=== PATIENT | female | born 1980 | race Caucasian/White ===

== ENCOUNTER 2018-04-12 18:09 | Emergency (ER) | payer OTHER ==
[~2018-04-12] VITALS: Ht 167.6 cm; Wt 152.9 kg
--- NOTE | 2018-04-12 18:15 | ED.ADGEN ---
Past History Past Medical History: Other Adult General Chief Complaint Chief Complaint ".. Just not feeling right... fast heart rate... I .. 17 weeks... been seeing Dr. Penaloza... I have some diabetes... This is my forth ...." HPI HPI Patient is a 38 year old fe,male who presents with above hx and complaints tachycardia, gravid and diabetes. Pt. denies any trauma, ill contacts or travel. Pt. has had some nausea. this is pt 4 t h . No hx of vaginal discharge. No hx of STD's. Pt. reports some leg edema. Pt. follows with Dr. Penaloza. Review of Systems Review of Systems Constitutional: Denies fever or chills [] Eyes: Denies change in visual acuity, redness, or eye pain [] HENT: Denies nasal congestion or sore throat [] Respiratory: Denies cough or shortness of breath [] Cardiovascular: No additional information not addressed in HPI [] GI: Denies abdominal pain, vomiting, bloody stools or diarrhea []Complaints of nausea. : Denies dysuria or hematuria [] Musculoskeletal: Denies back pain or joint pain []Complaints bilateral leg edema. Integument: Denies rash or skin lesions [] Neurologic: Denies headache, focal weakness or sensory changes [] Endocrine: Denies polyuria or polydipsia [] All other systems were reviewed and found to be within normal limits, except as documented in this note. Family History Family History Non-contributory Current Medications Current Medications Current Medications Medications (Trade) Dose Ordered Sig/Jina Start Time Stop Time Status Last Admin Dose Admin Aspirin (Children'S Aspirin) 81 mg 1X ONCE 04/12/18 18:45 04/12/18 18:46 DC 04/12/18 18:45 81 MG Ceftriaxone Sodium 1 gm/ Sodium Chloride 50 ml @ 100 mls/hr 1X ONCE 04/12/18 22:30 04/12/18 22:59 UNV Ceftriaxone Sodium (Rocephin) 1 gm ONCE ONCE 04/12/18 22:30 04/12/18 22:31 DC 04/12/18 22:46 1 GM Lactated Ringer's 1,000 ml @ 1,000 mls/hr Q1H 04/12/18 18:31 04/12/18 19:30 DC 04/12/18 19:05 1,000 MLS/HR Magnesium Sulfate 50 ml @ 25 mls/hr 1X ONCE 04/12/18 18:45 04/12/18 20:44 DC 04/12/18 19:06 25 MLS/HR Allergies Allergies Allergies Coded Allergies Type Severity Reaction Last Updated Verified No Known Allergies Allergy Unknown 04/12/18 Yes Physical Exam Physical Exam Constitutional: mild distress, non-toxic appearance. [] HENT: Normocephalic, atraumatic, bilateral external ears normal, oropharynx dry , no oral exudates, nose normal. [] Eyes: PERRLA, EOMI, conjunctiva normal, no discharge. [] Neck: Normal range of motion, no tenderness, supple, no stridor. [] Cardiovascular:Heart rate regular rhythm, no murmur [] Lungs & Thorax: Bilateral breath sounds clear to auscultation [] Abdomen: Bowel sounds normal, soft, no tenderness, gravid, no pulsatile masses. [] Obese. Skin: Warm, dry, no erythema, no rash. [] Back: No tenderness, no CVA tenderness. [] Extremities: No tenderness, no cyanosis, no clubbing, ROM intact, bilateral ankle edema. [] Neurologic: Alert and oriented X 3, normal motor function, normal sensory function, no focal deficits noted. [] Psychologic: Affect normal, judgement normal, mood normal. [] Current Patient Data Vital Signs Vital Signs Date Time Temp Pulse Resp B/P (MAP) Pulse Ox O2 Delivery O2 Flow Rate FiO2 04/12/18 22:45 70 18 122/72 (89) 98 Room Air 04/12/18 18:09 98.5 Lab Results Laboratory Tests Test 04/12/18 18:35 04/12/18 18:45 04/12/18 21:18 White Blood Count 7.4 x10^3/uL (4.0-11.0) Red Blood Count 4.89 x10^6/uL (3.50-5.40) Hemoglobin 13.6 g/dL (12.0-15.5) Hematocrit 41.0 % (36.0-47.0) Mean Corpuscular Volume 84 fL (79-100) Mean Corpuscular Hemoglobin 28 pg (25-35) Mean Corpuscular Hemoglobin Concent 33 g/dL (31-37) Red Cell Distribution Width 14.9 % (11.5-14.5) H Platelet Count 204 x10^3/uL (140-400) Neutrophils (%) (Auto) 68 % (31-73) Lymphocytes (%) (Auto) 22 % (24-48) L Monocytes (%) (Auto) 8 % (0-9) Eosinophils (%) (Auto) 1 % (0-3) Basophils (%) (Auto) 0 % (0-3) Neutrophils # (Auto) 5.0 x10^3uL (1.8-7.7) Lymphocytes # (Auto) 1.6 x10^3/uL (1.0-4.8) Monocytes # (Auto) 0.6 x10^3/uL (0.0-1.1) Eosinophils # (Auto) 0.1 x10^3/uL (0.0-0.7) Basophils # (Auto) 0.0 x10^3/uL (0.0-0.2) Prothrombin Time < 9.3 SEC (9.4-11.4) L Prothrombin Time INR 0.9 (0.9-1.1) PTT 25 SEC (23-33) D-Dimer (Melani) 0.98 mg/L (0.00-0.50) H Maternal Serum HCG Beta Subunit 6825 mIU/mL (0-6) H Sodium Level 138 mmol/L (136-145) Potassium Level 3.5 mmol/L (3.5-5.1) Chloride Level 102 mmol/L (98-107) Carbon Dioxide Level 25 mmol/L (21-32) Anion Gap 11 (6-14) Blood Urea Nitrogen 9 mg/dL (7-20) Creatinine 0.7 mg/dL (0.6-1.0) Estimated GFR (Cockcroft-Gault) 93.6 Glucose Level 100 mg/dL (70-99) H Calcium Level 8.8 mg/dL (8.5-10.1) Magnesium Level 1.7 mg/dL (1.8-2.4) L Total Bilirubin 0.2 mg/dL (0.2-1.0) Direct Bilirubin 0.1 mg/dL (0.0-0.2) Aspartate Amino Transferase (AST) 15 U/L (15-37) Alanine Aminotransferase (ALT) 28 U/L (14-59) Alkaline Phosphatase 71 U/L (46-116) GF-Fau-S-Type Natriuretic Peptide 65 pg/mL (0-124) Total Protein 7.3 g/dL (6.4-8.2) Albumin 2.8 g/dL (3.4-5.0) L Lipase 162 U/L (73-393) Troponin I Quantitative < 0.017 ng/mL (0-0.055) Urine Collection Type Unknown Urine Color Yellow Urine Clarity Hazy Urine pH 6.0 Urine Specific [place] >=1.030 Urine Protein Neg (NEG-TRACE) Urine Glucose (UA) Neg mg/dL (NEG) Urine Ketones (Stick) Trace mg/dL (NEG) Urine Blood Neg (NEG) Urine Nitrite Neg (NEG) Urine Bilirubin Neg (NEG) Urine Urobilinogen Dipstick 0.2 mg/dL (0.2 mg/dL) Urine Leukocyte Esterase Trace (NEG) Urine RBC 3-5 /HPF (0-2) Urine WBC 5-10 /HPF (0-4) Urine Squamous Epithelial Cells Many /LPF Urine Bacteria Mod /HPF (0-FEW) Urine Opiates Screen Neg (NEG) Urine Methadone Screen Neg (NEG) Urine Barbiturates Neg (NEG) Urine Phencyclidine Screen Neg (NEG) Urine Amphetamine/Methamphetamine Neg (NEG) Urine Benzodiazepines Screen Neg (NEG) Urine Cocaine Screen Neg (NEG) Urine Cannabinoids Screen Neg (NEG) Urine Ethyl Alcohol Neg (NEG) EKG EKG My interpretation of EKG sows sinu 83, Anterolateral changes, but no findings of acute STEMI with contralateral changes. [] Radiology/Procedures Radiology/Procedures No DVT by US. IUP 16w5 days[] Course & Med Decision Making Course & Med Decision Making Pertinent Labs and Imaging studies reviewed. (See chart for details). Pt. to follow up with primary.. Push fluids. Vit. C drinks. Take Keflex 500 three times a day . Review pending labs with primary and obgyn. Return if any concerns. [] Final Impression Final Impression 1. Dysrhythmia[]- Tachycardia 2. Gravidx 4 3. IUP - 16w 5 days Active- FHR 155 4. BHCG 6825 5. Hypomagnesium 1.7 6. UTI Dragon Disclaimer Dragon Disclaimer This electronic medical record was generated, in whole or in part, using a voice recognition dictation system. ROMERO CHU MD Apr 12, 2018 18:14
[2018-04-12] MEDS ORDERED: IV RINGERS SOLUTION,LACTATED 1,000 ML IV SCH (18:31)
[2018-04-12] MEDS: ASPIRIN 81 MG TAB.CHEW PO ONE ×2 (18:45→19:06)
[2018-04-12] MEDS ORDERED: MAGNESIUM SULFATE 2GM 50 ML IV ONE (18:45)
[2018-04-12 18:57] LABS: BASO % 0 % (0-3); EOS # 0.1 x10^3/uL (0.0-0.7); EOS % 1 % (0-3); HEMOGLOBIN 13.6 g/dL (12.0-15.5); LYMPH # 1.6 x10^3/uL (1.0-4.8); LYMPH % 22 % (24-48); MEAN CORPUSCULAR HEMOGLOBIN 28 pg (25-35); MEAN CORPUSCULAR HGB CONC 33 g/dL (31-37); MEAN CORPUSCULAR VOLUME 84 fL (79-100); MONO # 0.6 x10^3/uL (0.0-1.1); MONO % 8 % (0-9); NEUT % 68 % (31-73); PLATELET COUNT 204 x10^3/uL (140-400); RED BLOOD COUNT 4.89 x10^6/uL (3.50-5.40); RED CELL DISTRIBUTION WIDTH 14.9 % (11.5-14.5); WHITE BLOOD COUNT 7.4 x10^3/uL (4.0-11.0)
[2018-04-12 19:11] LABS: ALBUMIN 2.8 g/dL (3.4-5.0); CALCIUM 8.8 mg/dL (8.5-10.1); CREATININE 0.7 mg/dL (0.6-1.0); DIRECT BILIRUBIN 0.1 mg/dL (0.0-0.2); GFR 93.6; MAGNESIUM 1.7 mg/dL (1.8-2.4); POTASSIUM 3.5 mmol/L (3.5-5.1); TOTAL BILIRUBIN 0.2 mg/dL (0.2-1.0); TOTAL PROTEIN 7.3 g/dL (6.4-8.2)
[2018-04-12 21:40] LABS: AMPHETAMINE/METHAMPHETAMINE NEG (NEG); BARBITURATES NEG (NEG); BENZODIAZEPINES NEG (NEG); CANNABINOIDS NEG (NEG); COCAINE NEG (NEG); METHADONE NEG (NEG); OPIATES NEG (NEG); PHENCYCLIDINE NEG (NEG)
--- NOTE | 2018-04-12 21:56 | RAD ---
Ultrasound obstetrics limited 04/12/2018 Clinical indication: Atrial fibrillation dysrhythmia COMPARISON: Ultrasound 11/19/2012 Findings: There is a single intrauterine gestation in cephalic presentation. The placenta is posterior in location without evidence of placental previa. Amniotic fluid is subjectively unremarkable. Biometrical data is as follows: BPD = 3.5 cm, with a corresponding gestational age of 16 weeks 5 days. HC = 13.5 cm, with a corresponding gestational age of 17 weeks 0 days. AC = 10.8 cm, with a corresponding gestational age of 16 weeks 5 days. FL = 2.1 cm, with a corresponding gestational age of 16 weeks 3 days. Ratio of head circumference to abdominal circumference is 1.25. Overall, the estimated sonographic gestational age is 16 weeks 5 days for an estimated date of delivery of September 22, 2018. Estimated weight is 162 g. anatomy survey is not performed. heart rate is identified estimated at 155 bpm. IMPRESSION: Single living intrauterine with estimated gestational age of 16 weeks 5 days. Electronically signed by: Brigido Wofle MD (04/12/2018 9:52 PM) [facility]
--- NOTE | 2018-04-12 21:58 | RAD ---
Bilateral Lower extremity venous Doppler. 04/12/2018 HISTORY: Atrial fibrillation and dysrhythmia COMPARISON: None. FINDINGS: Grayscale, Color and Doppler analysis of the Bilateral Lower extremity deep venous system was performed with serial graded compression and augmentation. The bilateral common femoral, femoral, and popliteal veins are widely patent with normal color Doppler imaging. Limited images of the bilateral calf veins are unremarkable. IMPRESSION: No evidence of DVT in the bilateral lower extremities. Electronically signed by: Brigido Wolfe MD (04/12/2018 9:55 PM) [facility]
[2018-04-12 22:14] LABS: BILIRUBIN,URINE NEG (NEG); CLARITY,URINE HAZY; COLOR,URINE YELLOW; GLUCOSE,URINE NEG (NEG)
[2018-04-12 22:15] LABS: BACTERIA,URINE MOD /HPF (0-FEW); NITRITE,URINE NEG (NEG); SQUAMOUS EPITHELIAL CELL,UR MANY /LPF; UROBILINOGEN,URINE 0.2 mg/dL (0.2 mg/dL)
[2018-04-12] MEDS ORDERED: cefTRIAXone IV Push 1 GM VIAL. IVP ONE (22:30)
[2018-04-12] MEDS ORDERED: CEPH-264 PO (22:34)
[2018-04-12 22:45] VITALS: BP 122/72
--- NOTE | 2018-04-13 02:40 | EKG ---
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
== END 2018-04-12 23:02 | disposition home or self-care (01) ==
LOC: ER 18:09
DX: O26.892 Other specified pregnancy related conditions, second trimester (principal); O23.42 Unspecified infection of urinary tract in pregnancy, second trimester; R00.0 Tachycardia, unspecified; O12.02 Gestational edema, second trimester; E83.42 Hypomagnesemia; Z3A.16 16 weeks gestation of pregnancy
CPT/HCPCS: 36415; 76815; 80048; 80076; 80307; 81001; 83690; 83735; 83880; 84443; 84484; 84702; 85025; 85379; 85610; 85730; 86705; 86709; 86803; 86850; 86900; 86901; 87086; 87340; 93005; 93970; 96365; 96366; 96375; 99284; J0696; J3475; J7120

== ENCOUNTER 2019-02-19 18:01 | Emergency (ER) | payer OTHER ==
[~2019-02-19] VITALS: Ht 165.1 cm; Wt 137.9 kg
[~2019-02-19 18:01] MED LIST: CEPH-264 PO
--- NOTE | 2019-02-19 18:05 | ED.ADGEN ---
Past History Past Medical History: Other Past Surgical History: Cholecystectomy, Alcohol Use: None Drug Use: None Adult General Chief Complaint Chief Complaint ".. I just seen my doctor today at 10:00.. but she did not give me anything for my Rt. ear.. " HPI HPI Patient is a 38 year old female who presents with above hx and complaints of ear pain after cleaning ears Q tip. Patient does have some excoriation of the ear canal on right. And mild redness of the TM. Patient also complaining of lower mandible pain, but recently had a root canal on molar 30. Patient also has com plaints of cyst that are scheduled for removal on her scalp. Patient states the pain 8 years radiating into her right mandible face and upper neck. This is making her trapezius also tender on right. Patient denies any trauma. Other than the cleaning with Q-tips to right ear and recent root canal. Review of Systems Review of Systems Constitutional: Denies fever or chills [] Eyes: Denies change in visual acuity, redness, or eye pain [] HENT: Complaints of right ear pain Respiratory: Denies cough or shortness of breath [] Cardiovascular: No additional information not addressed in HPI [] GI: Denies abdominal pain, nausea, vomiting, bloody stools or diarrhea [] : Denies dysuria or hematuria [] Musculoskeletal: Denies back pain or joint pain [] Integument: Denies rash or skin lesions [] Neurologic: Denies headache, focal weakness or sensory changes [] Endocrine: Denies polyuria or polydipsia [] All other systems were reviewed and found to be within normal limits, except as documented in this note. Family History Family History Noncontributory Current Medications Current Medications Current Medications Medications (Trade) Dose Ordered Sig/Jina Start Time Stop Time Status Last Admin Dose Admin Neomycin/ Polymyxin/ Hydrocortisone (Cortisporin Otic) 2 drop 1X ONCE 02/19/19 18:30 02/19/19 18:31 DC 02/19/19 18:30 2 DROP Allergies Allergies Allergies Coded Allergies Type Severity Reaction Last Updated Verified No Known Allergies Allergy Unknown 04/12/18 Yes Physical Exam Physical Exam Constitutional: Mild to moderate distress, non-toxic appearance. [] HENT: Normocephalic, atraumatic, excoriated external ears and now also in right TM is slightly injected , oropharynx moist, no oral exudates, nose normal. []Recent dental work right molar #30. Some small cyst on scalp Eyes: PERRLA, EOMI, conjunctiva normal, no discharge. [] Neck: Normal range of motion, no tenderness, supple, no stridor. [] Cardiovascular:Heart rate regular rhythm, no murmur [] Lungs & Thorax: Bilateral breath sounds at apexes auscultation [] Abdomen: Bowel sounds normal, soft, no tenderness, no masses, no pulsatile masses. Obese Skin: Warm, dry, no erythema, no rash. [] Back: No tenderness, no CVA tenderness. [] Extremities: No tenderness, no cyanosis, no clubbing, ROM intact, no edema. [] Neurologic: Alert and oriented X 3, normal motor function, normal sensory function, no focal deficits noted. [] Psychologic: Affect anxious, judgement normal, mood normal. [] Current Patient Data Vital Signs Vital Signs Date Time Temp Pulse Resp B/P (MAP) Pulse Ox O2 Delivery O2 Flow Rate FiO2 02/19/19 19:02 85 18 96 Room Air Lab Results Laboratory Tests Test 02/19/19 18:55 02/19/19 19:02 Urine Collection Type Unknown Urine Color Yellow Urine Clarity Hazy Urine pH 6.0 Urine Specific [place] 1.025 Urine Protein Neg (NEG-TRACE) Urine Glucose (UA) Neg mg/dL (NEG) Urine Ketones (Stick) Trace mg/dL (NEG) Urine Blood Neg (NEG) Urine Nitrite Neg (NEG) Urine Bilirubin Neg (NEG) Urine Urobilinogen Dipstick 1 mg/dL (0.2 mg/dL) Urine Leukocyte Esterase Neg (NEG) Urine RBC Occ /HPF (0-2) Urine WBC 1-4 /HPF (0-4) Urine Squamous Epithelial Cells Few /LPF Urine Bacteria Few /HPF (0-FEW) Urine Opiates Screen Neg (NEG) Urine Methadone Screen Neg (NEG) Urine Barbiturates Neg (NEG) Urine Phencyclidine Screen Neg (NEG) Urine Amphetamine/Methamphetamine Neg (NEG) Urine Benzodiazepines Screen Neg (NEG) Urine Cocaine Screen Neg (NEG) Urine Cannabinoids Screen Neg (NEG) Urine Ethyl Alcohol Neg (NEG) POC Urine HCG, Qualitative hcg negative (Negative) EKG EKG [] Radiology/Procedures Radiology/Procedures [] Course & Med Decision Making Course & Med Decision Making Pertinent Labs and Imaging studies reviewed. (See chart for details). A shunt stop cleaning ears with Q-tips. Use Cortisporin drops to right ear 4 times a day. For marked pain may take Vicoprofen up 4 times a day. Follow-up primary care. Consider referral to ENT or audiology if having trouble with continued pain in right ear. Keep dental follow-up for partial repair of her molar root canal. [] Final Impression Final Impression 1. Right ear pain-felt to be due to excoriation with Q-tip 2. Right mandible pain= Dental repair molar 30[] Dragon Disclaimer Dragon Disclaimer This electronic medical record was generated, in whole or in part, using a voice recognition dictation system. Dragon Disclaimer This chart was dictated in whole or in part using Voice Recognition software in a busy, high-work load, and often noisy Emergency Department environment. It may contain unintended and wholly unrecognized errors or omissions. ROMERO CHU MD Feb 19, 2019 18:05
[2019-02-19] MEDS ORDERED: HYDR-1179 PO (18:25)
[2019-02-19] MEDS ORDERED: NEOMYCIN/POLYMYXIN/HC OTIC SUSPENSION 10ML BOTTLE. AD ONE (18:30)
[2019-02-19 19:02] VITALS: BP 129/96
[2019-02-19 19:17] LABS: AMPHETAMINE/METHAMPHETAMINE NEG (NEG); BARBITURATES NEG (NEG); BENZODIAZEPINES NEG (NEG); CANNABINOIDS NEG (NEG); COCAINE NEG (NEG); METHADONE NEG (NEG); OPIATES NEG (NEG); PHENCYCLIDINE NEG (NEG)
[2019-02-19 19:21] LABS: BILIRUBIN,URINE NEG (NEG); CLARITY,URINE HAZY; COLOR,URINE YELLOW; GLUCOSE,URINE NEG (NEG)
[2019-02-19 19:22] LABS: NITRITE,URINE NEG (NEG); RBC,URINE OCC /HPF (0-2); UROBILINOGEN,URINE 1 mg/dL (0.2 mg/dL)
[2019-02-19 19:23] LABS: BACTERIA,URINE FEW /HPF (0-FEW); SQUAMOUS EPITHELIAL CELL,UR FEW /LPF
== END 2019-02-19 19:35 | disposition home or self-care (01) ==
LOC: ER 18:01
DX: S00.412A Abrasion of left ear, initial encounter (principal); S00.411A Abrasion of right ear, initial encounter; R68.84 Jaw pain; Z98.818 Other dental procedure status; X58.XXXA Exposure to other specified factors, initial encounter; Y93.89 Activity, other specified; Y92.89 Other specified places as the place of occurrence of the external cause; Y99.8 Other external cause status
CPT/HCPCS: 36415; 80307; 81001; 81025; 99284

== ENCOUNTER → 2020-08-07 | Outpatient (CLI) | payer OTHER ==
[~2020-08-07] MED LIST changes: +HYDR-1179 PO
--- NOTE | 2020-08-07 14:48 | RAD ---
EXAM: Pelvic sonogram. HISTORY: Pain. TECHNIQUE: Transabdominal and transvaginal sonographic imaging of the pelvis was performed. COMPARISON: None. FINDINGS: The uterus measures 15.5 x 7.8 x 4.8 cm. The endometrial stripe is thickened, measuring 2.2 cm. There are small suspected cysts within the endometrium. The right ovary is obscured. The left ov mary kate is normal in size. There is a 1.4 cm dominant left ovarian follicle. Evaluation of left ovarian b lood flow is limited due to location and body habitus. There are multiple nabothian cysts within the cervix. There is no pelvic free fluid. IMPRESSION: 1. Prominent uterus size. No uterine mass is seen. 2. Thickened endometrium containing suspected small cysts. Sonographic follow-up at a different phase of the menstrual cycle or tissue sampling can be performed if clinically indicated. 3. Obscured right ovary. Suboptimal evaluation of left ovarian blood flow due to location and body edwards bitus. 4. Nabothian cysts. Electronically signed by: Michelle Jama MD (08/07/2020 2:46 PM) [facility]
== END ==
LOC: US 10:44
PROVIDERS: ATTEND Obstetrics & Gynecology
DX: N88.8 Other specified noninflammatory disorders of cervix uteri (principal); R93.89 Abnormal findings on diagnostic imaging of other specified body structures; R14.0 Abdominal distension (gaseous); R10.31 Right lower quadrant pain
CPT/HCPCS: 76830; 76856

== ENCOUNTER → 2020-08-10 | Outpatient (CLI) | payer OTHER ==
[2020-08-10 15:41] LABS: BASO % 1 % (0-3); EOS # 0.2 x10^3/uL (0.0-0.7); EOS % 4 % (0-3); HEMATOCRIT 40.9 % (36.0-47.0); HEMOGLOBIN 13.4 g/dL (12.0-15.5); LYMPH # 1.8 x10^3/uL (1.0-4.8); LYMPH % 30 % (24-48); MEAN CORPUSCULAR HEMOGLOBIN 28 pg (25-35); MEAN CORPUSCULAR HGB CONC 33 g/dL (31-37); MEAN CORPUSCULAR VOLUME 84 fL (79-100); MONO # 0.4 x10^3/uL (0.0-1.1); MONO % 7 % (0-9); NEUT # 3.6 x10^3uL (1.8-7.7); NEUT % 59 % (31-73); PLATELET COUNT 221 x10^3/uL (140-400); RED BLOOD COUNT 4.89 x10^6/uL (3.50-5.40); RED CELL DISTRIBUTION WIDTH 15.3 % (11.5-14.5); WHITE BLOOD COUNT 6.1 x10^3/uL (4.0-11.0)
[2020-08-10 15:52] LABS: ALBUMIN 3.3 g/dL (3.4-5.0); ALBUMIN/GLOBULIN RATIO 0.8 (1.0-1.7); CALCIUM 8.6 mg/dL (8.5-10.1); CREATININE 0.9 mg/dL (0.6-1.0); GFR 69.3; POTASSIUM 4.2 mmol/L (3.5-5.1); TOTAL BILIRUBIN 0.3 mg/dL (0.2-1.0); TOTAL PROTEIN 7.6 g/dL (6.4-8.2)
[2020-08-11 05:16] LABS: HEMOGLOBIN A1C 5.8 % (4.8-5.6)
[2020-08-11 19:27] LABS: THYROID STIM HORMONE (TSH) 1.597 uIU/mL (0.358-3.740)
== END ==
LOC: LAB 13:37
PROVIDERS: ATTEND Obstetrics & Gynecology
DX: R93.89 Abnormal findings on diagnostic imaging of other specified body structures (principal)
CPT/HCPCS: 36415; 80053; 80061; 83036; 84443; 85025

== ENCOUNTER 2021-05-08 12:37 | Emergency (ER) | payer OTHER ==
[~2021-05-08] VITALS: Ht 165.1 cm; Wt 154.5 kg
--- NOTE | 2021-05-08 13:53 | PHYS DOC ---
Past History Past Medical History: Migraines, Other Additional Past Medical Histor: GESTATIONAL DM (BARON MARAVILLA APRN) Past Surgical History: Cholecystectomy, , Other Additional Past Surgical Histo: WISDOM TEETH (BARON MARAVILLA APRN) Alcohol Use: None Drug Use: None (BARON MARAVILLA APRN) General Adult EDM: Chief Complaint: CHEST PAIN HPI: HPI: Patient is a 41-year-old female who presents to the emergency department for midsternal chest pain that started this morning around 8 AM. She describes it as an aching and tightness. Does not radiate. She is unable to rate the pain currently. No aggravating factors. It is alleviated by closing her eyes. She reports a chronic cough. She also reports nausea and anxiety. She denies any vomiting, shortness of breath, fevers or medical history. She states that she took [id number] migraine medication prior to arrival. (BARON MARAVILLA APRN) Review of Systems: Review of Systems: Constitutional: negative unless reported in HPI Eyes: negative unless reported in HPI HENT: negative unless reported in HPI Respiratory: negative unless reported in HPI Cardiovascular: negative unless reported in HPI GI: negative unless reported in HPI : negative unless reported in HPI Musculoskeletal: negative unless reported in HPI Integument: negative unless reported in HPI Neurologic: negative unless reported in HPI Endocrine: negative unless reported in HPI Lymphatic: negative unless reported in HPI Psychiatric: negative unless reported in HPI (BARON MARAVILLA APRN) Allergies: Allergies: Allergies Coded Allergies Type Severity Reaction Last Updated Verified No Known Allergies Allergy Unknown 04/12/18 Yes (BARON MARAVILLA APRN) Physical Exam: PE: Constitutional: Well developed, well nourished, no acute distress, non-toxic appearance. [] HENT: Normocephalic, atraumatic, bilateral external ears normal, oropharynx moist, no oral exudates, nose normal. [] Eyes: PERRL, EOMI, conjunctiva normal, no discharge. [] Neck: Normal range of motion, no stridor Cardiovascular:Heart rate regular rhythm, no murmur, chest pain reproducible with palpation [] Lungs & Thorax: Bilateral breath sounds clear to auscultation [] Abdomen: Bowel sounds normal, soft, no tenderness, obese, no masses, no pulsatile masses. [] Skin: Warm, dry, no erythema, no rash. [] Back: Normal range of motion Extremities: No tenderness, no cyanosis, no clubbing, ROM intact, no edema. [] Neurologic: Alert and oriented X 3, normal motor function, normal sensory function, no focal deficits noted. [] Psychologic: Affect normal, judgement normal, mood normal. [] (BARON MARAVILLA APRN) Current Patient Data: Labs: Laboratory Tests Test 05/08/21 13:41 05/08/21 14:05 05/08/21 14:10 White Blood Count 4.2 x10^3/uL Red Blood Count 5.29 x10^6/uL Hemoglobin 12.9 g/dL Hematocrit 40.5 % Mean Corpuscular Volume 77 fL Mean Corpuscular Hemoglobin 24 pg Mean Corpuscular Hemoglobin Concent 32 g/dL Red Cell Distribution Width 17.1 % Platelet Count 204 x10^3/uL Neutrophils (%) (Auto) 39 % Lymphocytes (%) (Auto) 39 % Monocytes (%) (Auto) 21 % Eosinophils (%) (Auto) 0 % Basophils (%) (Auto) 1 % Neutrophils # (Auto) 1.6 x10^3uL Lymphocytes # (Auto) 1.6 x10^3/uL Monocytes # (Auto) 0.9 x10^3/uL Eosinophils # (Auto) 0.0 x10^3/uL Basophils # (Auto) 0.0 x10^3/uL Sodium Level 136 mmol/L Potassium Level 4.6 mmol/L Chloride Level 100 mmol/L Carbon Dioxide Level 24 mmol/L Anion Gap 12 Blood Urea Nitrogen 11 mg/dL Creatinine 0.9 mg/dL Estimated GFR (Cockcroft-Gault) 69.0 BUN/Creatinine Ratio 12 Glucose Level 91 mg/dL Calcium Level 8.4 mg/dL Total Bilirubin 0.2 mg/dL Aspartate Amino Transf (AST/SGOT) 54 U/L Alanine Aminotransferase (ALT/SGPT) 52 U/L Alkaline Phosphatase 92 U/L Troponin I High Sensitivity 5 ng/L Total Protein 7.9 g/dL Albumin 3.5 g/dL Albumin/Globulin Ratio 0.8 Urine Collection Type Clean catch Urine Color Yellow Urine Clarity Clear Urine pH 5.5 Urine Specific [place] >=1.030 Urine Protein Trace Urine Glucose (UA) Neg mg/dL Urine Ketones (Stick) Neg mg/dL Urine Blood Small Urine Nitrite Neg Urine Bilirubin Small Urine Urobilinogen Dipstick 0.2 mg/dL Urine Leukocyte Esterase Neg Urine RBC 1-2 /HPF Urine WBC 0 /HPF Urine Bacteria 0 /HPF Bedside Urine HCG, Qualitative hcg negative Current Medications Medications (Trade) Dose Ordered Sig/Jina Route PRN Reason Start Time Stop Time Status Last Admin Dose Admin Sodium Chloride 1,000 ml @ 1,000 mls/hr 1X ONCE IV 05/08/21 14:30 05/08/21 15:29 05/08/21 14:30 Aspirin (Aspirin Chewable) 324 mg 1X ONCE PO 05/08/21 14:40 05/08/21 14:41 DC 05/08/21 14:37 Fentanyl Citrate (Fentanyl 2ml Vial) 50 mcg 1X ONCE IVP 05/08/21 14:40 05/08/21 14:41 DC 05/08/21 14:37 Diphenhydramine HCl (Benadryl) 25 mg 1X ONCE IVP 05/08/21 15:15 05/08/21 15:16 UNV Prochlorperazine Edisylate (Compazine) 10 mg 1X ONCE IV 05/08/21 15:15 05/08/21 15:16 UNV Vital Signs: Vital Signs Date Time Temp Pulse Resp B/P (MAP) Pulse Ox O2 Delivery O2 Flow Rate FiO2 05/08/21 13:37 87 16 151/90 (110) 99 (BARON MARAVILLA APRN) EKG: EKG: [] EKG performed by ER staff at 1245 shows sinus rhythm rate of 78, QTc of 428, no STEMI read by Dr. Burk at 1249. (BARON MARAVILLA APRN) Radiology/Procedures: Radiology/Procedures: []PROCEDURE: PORTABLE CHEST 1V Single AP view of the chest. Comparison: None. Indication: Chest pain Findings: The heart is not enlarged. There is no pneumothorax or effusion. No air space or interstitial disease. Impression: 1. No acute cardiopulmonary process. Electronically signed by: Tesfaye Huertas MD (05/08/2021 2:19 PM) [facility] DICTATED AND SIGNED BY: TESFAYE HUERTAS MD DATE: 05/08/21 3408 CC: BARON MARAVILLA APRN; FARHAT RAMOS ~MTH0 0 (BARON MARAVILLA APRN) Heart Score: C/O Chest Pain: Yes HEART Score for Chest Pain: HEART Score for Chest Pain Response (Comments) Value History Slighlty/Non-Suspicious 0 ECG Normal 0 Age < 45 0 Risk Factors 1 or 2 Risk Factors (Obesity) 1 Troponin < Normal Limit 0 Total 1 Risk Factors: Risk Factors: DM, Current or recent (<one month) smoker, HTN, HLP, family history of CAD, obesity. Risk Scores: Score 0 - 3: 2.5% MACE over next 6 weeks - Discharge Home Score 4 - 6: 20.3% MACE over next 6 weeks - Admit for Clinical Observation Score 7 - 10: 72.7% MACE over next 6 weeks - Early Invasive Strategies (BARON MARAVILLA APRN) Course & Med Decision Making: Course & Med Decision Making Pertinent Labs and Imaging studies reviewed. (See chart for details) [] Patient presents to the emergency department for chest pain that started this morning at 8 AM. Work-up in the ER consisted of blood work, EKG and chest x- ray. These were all unremarkable. Patient treated with aspirin and pain medication. Patient's heart score is 1 due to her history of obesity. She reports that she no longer has chest pain but is experiencing a frontal headache with intermittent lightheadedness that is worse with head movements. She states "do think I am having one of my migraines". Patient was treated for her migraine in the emergency department. Patient then reports that she has had a cough and is concerned for COVID, patient will be COVID tested. Patient has lightheadedness worse with head movements and position changes-she was treated with IV fluids, symptoms consistent with vertigo and she will be discharged with antivert prescription. Patient reports resolution of her symptoms following migraine treatment. Patient reports that she is feeling much better and "does not want to do this anymore". She is requesting to be discharged. Patient advised to increase fluids, take tylenol/ibuprofen for pain. I discussed with patient all findings and diagnostic testing as well as the need to follow-up with PCP for further evaluation and treatment or return to the ER if any new or worsening symptoms. Strict return precautions were also discussed at length. Patient voiced understanding and agreement with the plan. Patient is hemodynamically stable at the time of disposition. (BARON MARAVILLA APRN) Dragon Disclaimer: Dragon Disclaimer: This electronic medical record was generated, in whole or in part, using a voice recognition dictation system. (BARON MARAVILLA APRN) Attending Co-Sign The patient was seen and interviewed as well as examined at the bedside. The chart was reviewed. The case was discussed. Agree with the plan of care. (LEAH BURK DO) Departure Departure: Impression: Primary Impression: Atypical chest pain Additional Impression: Migraine Qualified Codes: G43.909 - Migraine, unspecified, not intractable, without status migrainosus Disposition: HOME / SELF CARE / HOMELESS Condition: GOOD Referrals: FARHAT RAMOS (PCP) Patient Instructions: Chest Pain (Nonspecific), Migraine Headache, [id number] Additional Instructions: You were seen in the emergency department today for chest pain. As we discussed, you are not experiencing acute coronary syndrome. However if you return home and you continue to have chest pain or it gets worse or you develop shortness of breath, palpitations, dizziness, intractable nausea or vomiting please return to the emergency department for reevaluation. Your headache and dizziness may be indicative of your migraine headaches or vertigo as dizziness with head movements and position changes are characteristic of vertigo. You are being discharged home with Antivert for vertigo. Please slowly make position changes so you do not fall. Please take Tylenol and/or ibuprofen for your headaches and follow-up with your primary care provider for additional medical management. Increase your fluids and rest as dehydration can be a common cause of headaches. You reported a cough and therefore was COVID tested in the emergency department and this is pending and we will call you with those results. I would strongly urge you to follow-up with your primary care provider tomorrow. Scripts Meclizine Hcl (MECLIZINE HCL) 25 Mg Tablet 1 TAB PO TID for vertigo for 7 Days, #21 TAB 0 Refills Prov: BARON MARAVILLA APRN 05/08/21 BARON MARAVILLA APRN May 08, 2021 13:52 LEAH BURK DO May 09, 2021 06:47
--- NOTE | 2021-05-08 14:00 | EKG ---
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
[2021-05-08 14:07] LABS: CALCIUM 8.4 mg/dL (8.5-10.1); CREATININE 0.9 mg/dL (0.6-1.0); POTASSIUM 4.6 mmol/L (3.5-5.1)
[2021-05-08 14:11] LABS: BASO % 1 % (0-3); EOS % 0 % (0-3); HEMATOCRIT 40.5 % (36.0-47.0); HEMOGLOBIN 12.9 g/dL (12.0-15.5); LYMPH # 1.6 x10^3/uL (1.0-4.8); LYMPH % 39 % (24-48); MEAN CORPUSCULAR HEMOGLOBIN 24 pg (25-35); MEAN CORPUSCULAR HGB CONC 32 g/dL (31-37); MEAN CORPUSCULAR VOLUME 77 fL (79-100); MONO # 0.9 x10^3/uL (0.0-1.1); MONO % 21 % (0-9); NEUT # 1.6 x10^3uL (1.8-7.7); NEUT % 39 % (31-73); PLATELET COUNT 204 x10^3/uL (140-400); RED BLOOD COUNT 5.29 x10^6/uL (3.50-5.40); RED CELL DISTRIBUTION WIDTH 17.1 % (11.5-14.5); WHITE BLOOD COUNT 4.2 x10^3/uL (4.0-11.0)
[2021-05-08 14:15] LABS: ALBUMIN 3.5 g/dL (3.4-5.0); ALBUMIN/GLOBULIN RATIO 0.8 (1.0-1.7); TOTAL BILIRUBIN 0.2 mg/dL (0.2-1.0); TOTAL PROTEIN 7.9 g/dL (6.4-8.2)
--- NOTE | 2021-05-08 14:21 | RAD ---
Single AP view of the chest. Comparison: None. Indication: Chest pain Findings: The heart is not enlarged. There is no pneumothorax or effusion. No air space or interstitial diseas e. Impression: 1. No acute cardiopulmonary process. Electronically signed by: Tesfaye Huertas MD (05/08/2021 2:19 PM) [facility]
[2021-05-08] MEDS ORDERED: IV NORMAL SALINE 1,000ML 1,000 ML IV ONE (14:30)
[2021-05-08 14:36] LABS: BILIRUBIN,URINE SMALL (NEG); CLARITY,URINE CLEAR; COLOR,URINE YELLOW; GLUCOSE,URINE NEG (NEG)
[2021-05-08 14:37] LABS: BACTERIA,URINE 0 /HPF (0-FEW); NITRITE,URINE NEG (NEG); UROBILINOGEN,URINE 0.2 mg/dL (0.2 mg/dL); WBC,URINE 0 /HPF (0-4)
[2021-05-08] MEDS ORDERED: ASPIRIN CHEWABLE 81 MG TABLET. PO ONE (14:40)
[2021-05-08] MEDS ORDERED: PROCHLORPERAZINE 10 MG/2 ML VIAL. IV ONE (15:15)
[2021-05-08] MEDS ORDERED: diphenhydrAMINE 50 MG/ML VIAL IVP ONE (15:15)
[2021-05-08 15:33] VITALS: BP 113/70
[2021-05-08] MEDS ORDERED: MECL-75 PO (15:37)
== END 2021-05-08 16:19 | disposition home or self-care (01) ==
LOC: ER 12:37
DX: R07.2 Precordial pain (principal); G43.909 Migraine, unspecified, not intractable, without status migrainosus
CPT/HCPCS: 36415; 71045; 80053; 81001; 81025; 84484; 85025; 93005; 96361; 96374; 96375; 99285; J0780; J1200; J3010; J7030

== ENCOUNTER 2021-07-31 04:02 | Emergency (ER) | payer OTHER ==
[~2021-07-31 04:02] MED LIST changes: +MECL-75 PO
== END 2021-07-31 04:38 | disposition left against medical advice (07) ==
LOC: ER 04:02
DX: L98.8 Other specified disorders of the skin and subcutaneous tissue (principal); Z53.21 Procedure and treatment not carried out due to patient leaving prior to being seen by health care provider